=== PATIENT | female | born 1965 | race Caucasian/White ===

== ENCOUNTER 2022-12-21 16:00 | Emergency (ER) | payer SELFPAY ==
[~2022-12-21] VITALS: Ht 154.9 cm; Wt 66.7 kg
[2022-12-21 16:14] VITALS: BP 138/78
--- NOTE | 2022-12-21 16:32 | NUR ---
57 Y/O FEMALE BIB SELF C/O NON RADIATING MID STERNAL CHEST PAIN, COUGH, DIZZINESS X1 DAY, DENIES ANY RADIATION, CONSTANT PAIN, DENIES ANY MEDICATION FOR PAIN NKA PMH: DENIES
[2022-12-21] MEDS ORDERED: KETOROLAC 15 MG/ML VIAL IM ONE (17:00)
--- NOTE | 2022-12-21 17:00 | NUR ---
Pt walked in to ER with c/o chest pain 6/10 and pressure accompanied by palpitations and dizziness since this morning. Denies any medical history. EKG done in triage and given to MD. Sánchez/Irina stable
--- NOTE | 2022-12-21 17:11 | NUR ---
Patient being evaluated by physician at bedside.
--- NOTE | 2022-12-21 17:16 | NUR ---
Radiology at bedside for CXR
[2022-12-21 17:52] LABS: ANION GAP 11.7 (8-16); ASPARTATE AMINOTRANSFERASE 24 U/L (15-37); CARBON DIOXIDE 30.5 mmol/L (21-32); CHLORIDE 99 mmol/L (98-107); CREATININE 0.9 mg/dL (0.6-1.3); GFR ARICAN-AMERICAN 83 mL/min (>90); GLUCOSE 98 mg/dL (74-106); POTASSIUM 4.2 mmol/L (3.5-5.1); SODIUM SERUM 137 mmol/L (136-145); TOTAL BILIRUBIN 0.1 mg/dL (0.0-1.0); UREA NITROGEN, BLOOD 16 mg/dL (7-18)
[2022-12-21 18:20] LABS: BASOPHILS % (AUTO) 0.6 % (0.0-2.0); EOSINOPHILS # (AUTO) 0.1 K/uL (0-0.4); EOSINOPHILS % (AUTO) 1.8 % (0.0-4.0); HEMOGLOBIN 13.9 g/dL (12.0-16.0); LYMPHOCYTES % (AUTO) 30.9 % (20.5-51.1); MEAN CORPUSCULAR HEMOGLOBIN 30 pg (27-31); MEAN CORPUSCULAR HGB CONC 33 g/dL (33-37); MONOCYTES # (AUTO) 0.6 K/uL (0.8-1.0); MONOCYTES % (AUTO) 8.9 % (1.7-9.3); NEUTROPHILS # (AUTO) 3.8 K/uL (1.8-7.7); NEUTROPHILS % (AUTO) 57.8 % (42.2-75.2); PLATELET COUNT (AUTO) 245 K/uL (140-450); RED BLOOD CELL COUNT(AUTO) 4.71 MIL/uL (4.20-5.40); RED CELL DISTRIBUTION WIDTH 13.7 % (11.6-13.7); WHITE BLOOD COUNT (AUTO) 6.6 K/uL (4.8-10.8)
--- NOTE | 2022-12-21 19:23 | NUR ---
Pt report given to Jill. Transfer of care at this time.
[2022-12-21] MEDS ORDERED: IBUP-2213 PO (19:44)
[2022-12-21 20:04] VITALS: BP 109/55
--- NOTE | 2022-12-21 20:04 | NUR ---
Patient discharged with v/s stable. Written and verbal after care instructions given and explained. Patient verbalized understanding. Ambulatory with steady gait. All questions addressed prior to discharge. Advised to follow up with PMD.
== END 2022-12-21 20:04 | disposition home or self-care (01) ==
LOC: MED 16:00
DX: R07.9 Chest pain, unspecified (principal)
CPT/HCPCS: 36415; 71045; 80053; 84484; 85025; 93005; 99285; Q0092